=== PATIENT | female | born 1990 | race Caucasian/White ===

== ENCOUNTER 2019-11-29 18:28 | Observation (INO) ==
[2019-11-29] MEDS ORDERED: IOPAMIDOL 100 ML BOTTLE IV ONE (18:29)
[2019-11-29] MEDS ORDERED: 0.9 % SODIUM CHLORIDE 1,000 ML IV ONE (19:33)
[2019-11-29 20:09] LABS: Hematocrit 33.5 % (34.1-44.9); Hemoglobin 10.6 g/dL (11.2-15.7); Mean Cell Volume 81.1 fL (80.0-100.0); Mean Corpuscular HGB Conc 31.6 g/dL (31.0-36.0); Mean Platelet Volume 9.7 fL (7.4-10.4); Platelet Count 177 K/mcL (140-440); RBC 4.13 M/mcL (3.59-5.38); Red Cell Distribution Width 14.3 % (11.5-14.5); WBC 6.9 K/mcL (4.50-11.00)
--- NOTE | 2019-11-29 20:23 | Emergency Department Note ---
Abdominal Pain HPI - General Chief Complaint: Abdominal Pain Stated Complaint: Abd pain Time Seen by Provider: 11/29/19 19:07 Source: patient Mode of arrival: ambulatory Limitations: no limitations - History of Present Illness HPI Narrative: This pleasant 29-year-old female presents with right lower quadrant sharp in nature type of pain that is not made better or worse by anything particular including bowel movements, urination, position. Onset was around 4:30 PM. She is not on any regular menstrual cycle because she is breast- feeding and had delivery 4 months ago. She took a home test today and it was negative. She reports that her partner and she are using condoms plus she is on the minipill because she is breast-feeding. She has felt some chills last evening. Has felt some cold sweats today. Temperatures been 99.6. She is felt some nausea. She vomited 5 times last evening and a few times this morning. Feels some headaches and weakness and lightheaded/dizziness. REVIEW OF SYSTEMS: No chest pain, cough, shortness of breath, diarrhea, constipation, hematochezia, dysuria, frequency, back pain, anxiety, depression. - Related Data Home Medications Medication Instructions Recorded Confirmed prenat.vits,alexa,[id number] 1 tab PO QDAY 03/13/19 11/29/19 norethindrone (contraceptive) 0.35 1 tab PO DAILY 10/01/19 11/29/19 mg tablet Allergies Allergy/AdvReac Type Severity Reaction Status Date / Time No Known Drug Allergies Allergy Verified 11/29/19 18:28 Abdominal Pain PMH - Past Medical History [facility] Narrative: Medical History (Last Updated 11/30/19 @ 05:05 by Zheng Hopkins DO) Hyperprolactinemia (Chronic) History of recurrent miscarriages (Chronic) PCOS (polycystic ovarian syndrome) (Chronic) Migraines (Chronic) Anxiety (Chronic) Anemia (Chronic Unknown) History of gallbladder disease (Chronic ~2008) Abnormal uterine bleeding (Resolved) Breakthrough bleeding (Resolved) Elevated blood pressure reading without diagnosis of hypertension (Resolved) Endometritis (Resolved) Gonorrhea (Resolved) Irregular periods (Resolved) Blood type B- (Inactive) Past Surgical History (Last Reviewed 10/01/19 @ 08:54 by Kwaku Cobos PA-C) H/O gastric bypass (Chronic) History of D&C (Chronic) History of cholecystectomy (Chronic ~05/2009) History of gastric bypass (Chronic 11/29/17) History of tonsillectomy (Chronic ~1995) Family History (Last Reviewed 10/01/19 @ 08:54 by Kwaku Cobos PA-C) Grandfather Dementia Diabetes High blood pressure Heart attack Alzheimer disease Mother Migraines High blood pressure Obese Osteoporosis Rheumatoid arthritis Sister Obese Grandmother Alzheimer disease Psychiatric history: Denies: anxiety, depression - Social History Smoking status: Never smoker Alcohol use: Reports: None Drug use: Reports: none. Denies: marijuana Physical Exam Limitations: no limitations General appearance: alert, in no apparent distress Head: atraumatic, normocephalic Eye: Present: normal appearance, PERRL, EOMI. Absent: scleral icterus, conjunctival injection ENT: Present: normal oropharynx, mucous membranes moist Neck: Present: trachea midline. Absent: lymphadenopathy, thyromegaly Chest: Present: symmetric chest wall rise Respiratory: Present: normal lung sounds bilaterally. Absent: respiratory distress, wheezes, stridor, accessory muscle use, prolonged expiratory phase Cardiovascular: Present: regular rate, normal rhythm. Absent: systolic murmur, diastolic murmur Abdominal: Present: soft, tenderness (Moderately in the right lower quadrant. There is contralateral rebound pain.). Absent: distention, guarding, rebound, rigidity, organomegaly, mass Extremities: Absent: pedal edema, pretibial edema, calf tenderness, cyanosis, clubbing Back: Absent: CVA tenderness (R), CVA tenderness (L), spinous process tenderness Neurological: Present: alert, oriented X3 Psychiatric: Present: normal affect, normal mood Skin: Present: warm, dry Course Vital Signs Temperature 97.0 F 11/29/19 18:29 Pulse Rate 75 11/29/19 18:29 Respiratory Rate 16 11/29/19 18:29 Blood Pressure 147/78 11/29/19 18:29 Pulse Oximetry (%) 98 11/29/19 18:29 Temperature 98.6 F 11/30/19 03:24 Pulse Rate 84 11/30/19 03:24 Respiratory Rate 18 11/30/19 03:24 Blood Pressure 117/74 11/30/19 03:24 Pulse Oximetry (%) 100 11/30/19 03:24 Abdominal Pain - MDM Narrative Medical decision making narrative: 7:14 PM - right lower quadrant pain without fever or tachycardia but seems to be peritoneal signs present. Rule out appendicitis, ovarian cyst, diverticulitis, colitis, etc. Will do CT scan and labs. CT because she is a large woman. Telephone call from radiologist reports acute appendicitis with 13 mm sized appendix. No abscess or rupture present. I discussed these circumstances with Dr. Bartolome Billingsley, general surgeon, who is agreeable to assume care of this patient. Holding orders with Zosyn included are created. - Lab Data Result diagrams: 11/29/19 19:30 Lab Results 11/29/19 11/29/19 11/29/19 Range/Units 19:30 19:30 21:11 WBC 6.9 (4.50-11.00) K/mcL RBC 4.13 (3.59-5.38) M/mcL Hgb 10.6 L (11.2-15.7) g/dL Hct 33.5 L (34.1-44.9) % MCV 81.1 (80.0-100.0) fL MCH 25.7 L (26.0-34.0) pg MCHC 31.6 (31.0-36.0) g/dL RDW 14.3 (11.5-14.5) % Plt Count 177 (140-440) K/mcL MPV 9.7 (7.4-10.4) fL Total Counted 100 Seg Neutrophils % 52 (38-78) % Band Neutrophils % Not Reportable Lymphocytes % 40 (15-49) % Monocytes % (Manual) 8 (1-12) % Platelet Estimate Normal (NORMAL) RBC Morphology Normal (NORMAL) C-Reactive Protein 5.2 H (0.0-0.8) mg/dl Urine Color Yellow Urine Appearance Hazy Urine pH 7.0 (5.0-9.0) Ur Specific [place] 1.016 (1.000-1.035) Urine Protein Neg (NEG) mg/dL Urine Glucose (UA) Negative (NEG) mg/dL Urine Ketones Neg (NEG) mg/dL Urine Occult Blood Neg (<0.03) mg/dL Urine Nitrate Neg (NEG) Urine Bilirubin Neg (NEG) mg/dL Urine Urobilinogen Neg (NEG) mg/dL Ur Leukocyte Esterase 500 A (NEG) /uL Urine RBC 2 H (0-1) /hpf Urine WBC 6 H (0-4) /hpf Ur Squamous Epith Cells 14 H (0-4) /hpf Urine Bacteria 0 (0) /hpf Urine Mucus Many A (0) /hpf Ur Culture Indicated? No Disposition Pt seen by [employer]/PA only: No Clinical Impression: Acute appendicitis Qualifiers: Acute appendicitis type: with localized peritonitis Appendicitis gangrene presence: without gangrene Appendicitis perforation presence: without perforation Appendicitis abscess presence: without abscess Qualified Code(s): K 35.30 - Acute appendicitis with localized peritonitis, without perforation or gangrene Anemia Qualifiers: Anemia type: unspecified type Qualified Code(s): D64.9 - Anemia, unspecified Disposition: Xfer As Inpt ([facility]) Condition: Good
[2019-11-29] MEDS ORDERED: NALOXONE HCL 0.4 MG/ML VIAL IV PRN (20:24)
[2019-11-29 20:29] LABS: C-Reactive Protein 5.2 mg/dl (0.0-0.8)
[2019-11-29 20:35] LABS: Lymphocytes % 40 % (15-49); Monocytes % (Manual) 8 % (1-12); Platelet Estimate NORMAL (NORMAL); RBC Morphology NORMAL (NORMAL); Segmented Neutrophils % 52 % (38-78)
[2019-11-29] MEDS: ONDANSETRON 4 MG/2 ML VIAL IV PRN (21:03)
[2019-11-29] MEDS: HYDROmorphone 2 MG/ML VIAL IV PRN ×2 (21:03→22:57)
[2019-11-29] MEDS: PIPERACILLIN SODIUM/TAZOBACTAM 3.375 GM in DEXTROSE 5% IN WATER 50 ML IV SCH (21:05)
[2019-11-29 22:33] LABS: Appearance,Urine HAZY; Bacteria,Urine 0 /hpf (0); Bilirubin,Urine NEG (NEG); Color,Urine YELLOW; Culture Indicated,Urine NO; Glucose,Urine (UA) NEGATIVE (NEG); Ketones,Urine NEG (NEG); Leukocyte Esterase,Urine 500 /uL (NEG); Mucus,Urine MANY /hpf (0); Nitrate,Urine NEG (NEG); Protein,Urine NEG (NEG); Specific Gravity,Urine 1.016 (1.000-1.035); Urine Blood NEG mg/dL (<0.03); Urine RBC 2 /hpf (0-1); Urine Squamous Epithelial Cell 14 /hpf (0-4); Urine WBC 6 /hpf (0-4); Urobilinogen,Urine NEG (NEG)
[2019-11-29] MEDS: LACTATED RINGERS 1,000 ML IV SCH (22:41)
[2019-11-30] MEDS: HYDROmorphone 2 MG/ML VIAL IV PRN ×5 (01:21→20:09)
[2019-11-30] MEDS: PIPERACILLIN SODIUM/TAZOBACTAM 3.375 GM in DEXTROSE 5% IN WATER 50 ML IV SCH ×5 (02:46→20:13)
[2019-11-30] MEDS ORDERED: IPRATROPIUM/ALBUTEROL 3 ML AMPUL.NEB NEB PRN ×3 (06:25→14:30)
[2019-11-30] MEDS ORDERED: SCOPOLAMINE 1 PATCH PATCH TOPICAL PRN (06:25)
[2019-11-30] MEDS: LACTATED RINGERS 1,000 ML IV SCH ×3 (07:10→14:35)
[2019-11-30 07:39] LABS: Blood Urea Nitrogen 7 mg/dl (6-20); Calcium 8.6 mg/dl (8.6-10.4); Carbon Dioxide 21 mmol/L (22-30); Glomerular Filtration Rate 123; Glucose 83 mg/dL (70-105); HCG,Serum NEGATIVE <10 (<10 mIU/ml)
[2019-11-30 07:40] LABS: Chloride 110 mmol/L (96-108)
--- NOTE | 2019-11-30 07:45 | Cat Scan Report ---
History: Right lower quadrant pain TECHNIQUE: The patient was imaged following intravenous but no oral contrast scanning from the diaphragm to the symphysis pubis. Sagittal and coronal reformats were created. Radiation exposure was limited using dose reduction technology. FINDINGS: The liver and spleen are normal in size and homogeneous. There is a focal area of fatty infiltration in the left lobe adjacent to the falciform ligament. The gallbladder is been removed. The bile ducts are nondilated. The pancreas is normal without evidence of a mass or inflammation. The adrenals and kidneys are normal. There is no kidney stone or hydronephrosis. Patient has had prior gastric reduction surgery. There appears to be a Kumar-en-Y connection. Small bowel is nondilated. The appendix is markedly thickened and inflamed and there is inflammation of the surrounding fat. It measures up to 1.3 cm in diameter. No appendicolith, abscess or ascites are present. The uterus and ovaries are normal in size and contour. There is no diverticulitis. IMPRESSION: Acute appendicitis Dr. Hopkins was called with the results Interpreted and Authenticated by: Jesus Manuel Lee 11/30/19
[2019-11-30] MEDS: ONDANSETRON 4 MG/2 ML VIAL IV PRN (10:54)
--- NOTE | 2019-11-30 12:43 | General Surg History&Physical ---
History of Present Illness Patient information: Note initiated : 11/30/19 at 12:42 pm Service Date, if different from initiated Date: [] Patient: Rosa Simpson a 29 y/o F admitted on 11/29/19 for Abd pain. Chief Complaint: [] HPI: Ms. Simpson is a 29 year old F admitted with acute appendicitis. The patient had onset of right-sided abdominal pain about 1630 on Tuesday of this week. She had multiple episodes of nausea with vomiting. This prompted her to come to the emergency room for evaluation. She was found to have acute appendicitis admitted. She was counseled for laparoscopic appendectomy. Review of Systems All systems PM: reviewed and no additional remarkable complaints except as stated (negative except as noted in HPI) Past History Past medical history: No chronic medical problems. Polycystic ovary disease Past surgical history: Cholecystectomy. Gastric bypass surgery Past family history: Hypertension. Coronary artery disease Diabetes mellitus Past social history: Never smoker. Denies alcohol use Denies drug use Medications and Allergies Home Medications Medication Instructions Recorded Confirmed Type prenat.vits,alexa,[id number] 1 tab PO QDAY 03/13/19 11/29/19 History norethindrone (contraceptive) 0.35 1 tab PO DAILY 10/01/19 11/29/19 History mg tablet Allergies Allergy/AdvReac Type Severity Reaction Status Date / Time No Known Drug Allergies Allergy Verified 11/29/19 18:28 Exam Temp Pulse Resp BP Pulse Ox 97.9 F 95 H 18 116/68 96 11/30/19 07:46 11/30/19 07:46 11/30/19 08:00 11/30/19 07:46 11/30/19 08:00 - General physical appearance well developed, well nourished, moderate distress, moderate pain, obese - Eyes PERRL, normal ocular movement - ENT normal pinna, normal nares, normal mucosa, no hearing loss, no congestion - Head Head exam IM: Present: atraumatic, normocephalic - Neck no masses, no bruits, trachea midline, no lymphadenopathy, no venous distension - Cardiovascular Cardiovascular exam IM: Present: normal rate and rhythm - Respiratory normal expansion, normal respiratory effort, clear to percussion, clear to auscultation - Abdomen Abdomen: Present: soft, tender (distended with tenderness right lower quadrant; active bowel sounds), bowel sounds Hernia: Present: none - Genitourinary Present: normal external genitalia - Integumentary Present: no rash, no growths, no abnormal pigmentation - Neurologic Present: normal coordination, normal sensation - Musculoskeletal Present: normal gait, normal posture - Psychiatric Present: oriented to time, oriented to person, oriented to place, speech is normal, memory intact Assessment and Plan (1) Acute appendicitis Patient is counseled for laparoscopic appendectomy which will be performed later today. Status: Acute Qualifiers: Acute appendicitis type: with localized peritonitis Appendicitis gangrene presence: without gangrene Appendicitis perforation presence: without perforation Appendicitis abscess presence: without abscess Qualified Code(s): K35.30 - Acute appendicitis with localized peritonitis, without perforation or gangrene (2) Anxiety Status: Chronic (3) PCOS (polycystic ovarian syndrome) Status: Chronic
[2019-11-30] MEDS ORDERED: LIDOCAINE HCL/PF 100 MG/5 ML SYRINGE IV ONE (12:45)
[2019-11-30] MEDS ORDERED: ONDANSETRON 4 MG/2 ML VIAL IV ONE (12:45)
[2019-11-30] MEDS ORDERED: MIDAZOLAM 2 MG/2 ML VIAL IV ONE (12:45)
[2019-11-30] MEDS ORDERED: fentaNYL 250 MCG/5 ML VIAL IV ONE (12:45)
[2019-11-30] MEDS ORDERED: ROCURONIUM 10 MG/ML ML IV ONE (12:45)
[2019-11-30] MEDS ORDERED: KETAMINE 100 MG/ML ML IV ONE (12:45)
[2019-11-30] MEDS ORDERED: PROPOFOL 200 MG/20 ML VIAL IV ONE (12:45)
[2019-11-30] MEDS ORDERED: SUCCINYLCHOLINE 20 MG/ML ML IV ONE (12:45)
[2019-11-30] MEDS ORDERED: SUGAMMADEX SODIUM 200 MG/2 ML VIAL IV ONE (12:45)
[2019-11-30] MEDS ORDERED: DEXAMETHASONE 10 MG/ML VIAL IV ONE (12:45)
[2019-11-30] MEDS ORDERED: LACTATED RINGERS 250 ML IV PRN ×2 (13:28→14:30)
[2019-11-30] MEDS ORDERED: KETOROLAC 30 MG/ML VIAL IV PRN ×2 (13:28→14:30)
[2019-11-30] MEDS ORDERED: diphenhydrAMINE 50 MG/ML VIAL IV PRN ×2 (13:28→14:30)
[2019-11-30] MEDS ORDERED: NALOXONE HCL 0.4 MG/ML VIAL IV PRN ×3 (13:28→14:30)
[2019-11-30] MEDS ORDERED: ONDANSETRON 4 MG/2 ML VIAL IV PRN ×3 (13:28→14:30)
[2019-11-30] MEDS ORDERED: MEPERIDINE 25 MG/ML SYRINGE IV PRN ×2 (13:28→14:30)
[2019-11-30] MEDS ORDERED: BENZOCAINE/MENTHOL 1 LOZENGE PO PRN ×2 (13:28→14:30)
[2019-11-30] MEDS ORDERED: PROMETHAZINE 25 MG/ML VIAL IV PRN ×2 (13:28→14:30)
[2019-11-30] MEDS ORDERED: ACETAMINOPHEN 1,000 MG/100 ML BOTTLE IV ONE (13:28)
[2019-11-30] MEDS ORDERED: LACTATED RINGERS 1,000 ML IV SCH ×2 (13:30→14:30)
--- NOTE | 2019-11-30 13:38 | Brief Operative Note ---
Date of procedure: 11/30/19 Pre-op diagnosis: acute appendicitis Post-op diagnosis: other (acute appendicitis) Procedure: LAPAROSCOPIC APPENDECTOMY Grafts/Implants: No Anesthesia: GETA Findings: ACUTE SUPPURATIVE APPENDICITIS Complications: none Surgeon: Mariia Billingsley Estimated blood loss (cc): 10 Specimens Removed/Pathology: other (APPENDIX) Condition: stable Disposition: PACU
[2019-11-30] MEDS: fentaNYL 100 MCG/2 ML VIAL IV PRN ×4 (14:10→14:16)
[2019-11-30] MEDS ORDERED: fentaNYL 100 MCG/2 ML VIAL IV PRN (14:30)
[2019-12-01] MEDS: HYDROmorphone 2 MG/ML VIAL IV PRN ×4 (00:26→11:32)
[2019-12-01] MEDS: PIPERACILLIN SODIUM/TAZOBACTAM 3.375 GM in DEXTROSE 5% IN WATER 50 ML IV SCH ×3 (03:07→12:28)
[2019-12-01] MEDS: LACTATED RINGERS 1,000 ML IV SCH ×2 (04:00→10:32)
--- NOTE | 2019-12-01 13:31 | Discharge Summary ---
Providers - Providers Patient information: Note initiated : 12/01/19 at 1:29 pm Service Date, if different from initiated Date: [] Patient: Rosa Simpson 29 y/o F admitted on 11/29/19 for Abd pain. Chief Complaint: [] Date of admission: 11/29/19 Discharge date: 12/01/19 Attending physician: Mariia Billingsley Hospitalization Hospital Course: 29-year-old female admitted on 29 November with signs and symptoms of appendicitis. This was confirmed by CT scan of the abdomen. She had successful laparoscopic appendectomy on yesterday. She is doing fine except for mild incisional tenderness. She has tolerated diet without difficulty. Her only discomfort is in the port sites. The nausea and vomiting has resolved. Patient is stable for discharge home. Discharge diagnosis: acute appendicitis Reason for admission: abdominal pain nausea and vomiting Procedures: Laparoscopic appendectomy 30 November 2019 Pertinent studies/significant findings: CT of abdomen and pelvis with contrast Complications: None Exam Temp Pulse Resp BP Pulse Ox 98.4 F 60 14 123/75 97 12/01/19 11:21 12/01/19 11:21 12/01/19 11:21 12/01/19 11:21 12/01/19 11:21 - General physical appearance well developed, well nourished, no distress, moderate pain, obese - Eyes PERRL, normal ocular movement - ENT normal pinna, normal nares, normal mucosa, no hearing loss, no congestion - Head Head exam IM: Present: atraumatic, normocephalic - Neck no masses, no bruits, trachea midline, no lymphadenopathy, no venous distension - Cardiovascular Cardiovascular exam IM: Present: normal rate and rhythm - Respiratory normal expansion, normal respiratory effort, clear to percussion, clear to auscultation - Abdomen Abdomen: Present: soft, non tender, tender (mild tenderness in port sites; good active bowel sounds; mild distention), bowel sounds Hernia: Present: none - Genitourinary Present: normal external genitalia - Integumentary Present: no rash, no growths, no abnormal pigmentation - Neurologic Present: normal coordination, normal sensation - Musculoskeletal Present: normal gait, normal posture - Psychiatric Present: oriented to time, oriented to person, oriented to place, speech is normal, memory intact Discharge Plan - Patient/Caregiver Discharge Instructions Activity: increase activity as tolerated Diet: Regular Diet Additional Instructions: Contact office to arrange for an appointment in 2 weeks Prescriptions: oxyCODONE/APAP [Percocet 5-325 mg] 1 tab PO Q4HP PRN #40 tablet PRN Reason: Pain Transmission Status: Received by [employer] [id number] - Follow up Plan Follow up with: Cheryl Reina PA-C [Primary Care Provider] - Mariia Billingsley MD [Physician] - Disposition: Home, Self-Care Prognosis: Good Rehab Potential: Good I certify that the patient requires SNF services.: No Overall status at discharge: patient is progressing back to baseline Pending Studies Resuscitation Status Full Code Diet Regular Diet Start Sat Dec 01 1238 Hydromorphone HCl (Dilaudid) 0.5 mg IV Q1HP PRN; Protocol PRN Reason: Per Pain Protocol Last Admin: 12/01/19 11:32 Dose: 0.5 mg Documented by: Admin: 12/01/19 09:07 Dose: 0.5 mg Documented by: Admin: 12/01/19 06:23 Dose: 0.5 mg Documented by: Admin: 12/01/19 00:26 Dose: 0.5 mg Documented by: Admin: 11/30/19 20:09 Dose: 0.5 mg Documented by: Admin: 11/30/19 17:41 Dose: 0.5 mg Documented by: SILVIO Lactated Ringer's (Lactated Ringers) 1,000 mls @ 100 mls/hr IV .Q10H [facility] Last Admin: 12/01/19 10:32 Dose: Not Given Documented by: Admin: 12/01/19 04:00 Dose: 100 mls/hr Documented by: Infusion: 12/01/19 03:15 Dose: 0 mls/hr Documented by: Admin: 11/30/19 14:35 Dose: 100 mls/hr Documented by: SILVIO Piperacillin Sod/Tazobactam (Sod 3.375 gm/ Dextrose) 50 mls @ 100 mls/hr IV Q6H [facility]; Protocol Last Admin: 12/01/19 12:28 Dose: 100 mls/hr Documented by: Admin: 12/01/19 04:39 Dose: Not Given Documented by: Infusion: 12/01/19 04:00 Dose: 0 mls/hr Documented by: Admin: 12/01/19 03:07 Dose: 100 mls/hr Documented by: Infusion: 11/30/19 22:29 Dose: 0 mls/hr Documented by: Admin: 11/30/19 20:13 Dose: 100 mls/hr Documented by: Infusion: 11/30/19 16:30 Dose: 100 mls/hr Documented by: [email or web address] Admin: 11/30/19 15:35 Dose: 100 mls/hr Documented by: [email or web address] Shift Summary 12/01/19 04:19 Shift Summary by Mercedes Jennings A&O x4, calm and cooperative with cares. Slept on and off this shift. Up ad franci in room - stable on feet and able to independently push IV pole around safely. Pain well managed with 0.5mg IV Dilaudid x2 this shift. Also given hot packs for her shoulder to help with CO2 pain. VSS on RA. 3 lap sites with fabiola and covered with tegaderm - scant sanguinous drainage noted. IV to the left forearm infusing LR @ 100ml/hr. Receiving scheduled Zosyn. Voiding per BR. Will update at bedside. Initialized on 12/01/19 04:19 - END OF NOTE
--- NOTE | 2019-12-03 13:17 | Surgical Pathology Report ---
HISTOLOGY SPECIMEN MICROSCOPIC DIAGNOSIS APPENDIX, APPENDECTOMY: -- ACUTE APPENDICITIS WITH SEROSITIS. (EBD:adj) GROSS DESCRIPTION Received in formalin labeled appendix, is a 5.8 cm long by up to 1.2 cm in diameter pink-cesar appendix with 2 cm of attached yellow-cesar adipose tissue. The margin is stapled closed and the staple line extends approximately 1 cm into the adjacent adipose tissue. The surface is covered with a thickened white-cesar possible exudate. The lumen contains a minimal amount of soft red-cesar hemorrhagic material. Grossly no perforations are identified. [employer] sections submitted - one cassette. (STS:sln) Electronically Signed by: Sara Castro M.D.
--- NOTE | 2019-12-04 14:31 | Operative Note ---
DATE OF OPERATION: 11/30/2019 PREOPERATIVE DIAGNOSIS: Acute appendicitis. POSTOPERATIVE DIAGNOSIS: Acute appendicitis. PROCEDURE: Laparoscopic appendectomy. SURGEON: Mariia Billingsley M.D. FINDINGS: Acute suppurative appendicitis. DESCRIPTION OF PROCEDURE: Under general anesthesia, the patient's abdomen was prepped and draped in a sterile field. Supraumbilical incision was made and a Veress needle was inserted. Abdomen was insufflated with 3 liters of CO2. A 12 mm port was placed. Laparoscope was placed. Under videoscopic guidance, a 5 mm port was placed in the suprapubic midline and a 12 mm port in the left lower quadrant. The patient was placed in deep Trendelenburg position and rotated to the left. The appendix was laying in the right gutter lateral to the cecum. It was grasped with self-retaining grasper by the mesoappendix. An incision was made at the base of the appendix in the mesoappendix and this was dissected. The mesoappendix was transected using Endo-NICK stapler. The base of the appendix was transected using a Endo-GI stapler. The appendix was placed in an Endopouch and retrieved. Irrigation was carried out. There was no bleeding. The pelvis was irrigated and there was no purulence. CO2 was allowed to escape from the abdomen, and the ports were removed. Fascia at the supraumbilical port site was closed with interrupted 0 Vicryl. Skin incisions were closed with fabiola. Tegaderm dressings were placed. The patient was awakened and transferred to a bed and taken to the postanesthetic care unit in stable, satisfactory condition. LCS:lennox Job ID: [id number] Doc ID: [id number] Mariia Billingsley M.D.
== END 2019-12-01 14:25 | disposition home or self-care (01) ==
LOC: MEDSUR 18:28 → ED 18:28 → MEDSUR 21:26
PROVIDERS: ADMIT Family Medicine Adult Medicine; ATTEND Family Medicine Adult Medicine